=== PATIENT | male | born 2000 | race Caucasian/White ===

== ENCOUNTER 2023-09-01 19:07 | Emergency (ER) | payer MEDICAID ==
[~2023-09-01] VITALS: Ht 165.1 cm; Wt 79.4 kg
[2023-09-01 19:18] VITALS: BP_SYST 130; PULSE 100; RESP 18; O2SAT 97
[2023-09-01] MEDS ORDERED: DIPHTH,PERTUSS(ACELL),TET VAC 0.5 ML VIAL (Tdap) I.M. ONE (19:30)
[2023-09-01] MEDS ORDERED: SILVER SULFADIAZINE 1%, 25 GM TOPICAL CREAM (SSD) TP ONE (19:30)
[2023-09-01] MEDS ORDERED: IBUPROFEN 800 MG TABLET PO ONE (19:30)
[2023-09-01] MEDS ORDERED: SILV50CR43 TP (20:06)
[2023-09-01] MEDS ORDERED: IBUP-1971 PO (20:06)
[2023-09-01 20:20] VITALS: BP_SYST 114; PULSE 69; RESP 20; TEMP 98.1; O2SAT 98
== END 2023-09-01 20:22 | disposition home or self-care (01) ==
LOC: SED 19:07
DX: T24.211A Burn of second degree of right thigh, initial encounter (principal); T24.212A Burn of second degree of left thigh, initial encounter; Z79.899 Other long term (current) drug therapy; X12.XXXA Contact with other hot fluids, initial encounter; Y93.89 Activity, other specified; Y92.89 Other specified places as the place of occurrence of the external cause; Y99.8 Other external cause status
CPT/HCPCS: 90715; 99283